=== PATIENT | male | born 1955 | race Caucasian/White ===

== ENCOUNTER 2016-12-19 10:19 | Emergency (ER) | payer OTHER ==
[~2016-12-19] VITALS: Ht 180.3 cm; Wt 83.9 kg
[~2016-12-19 10:19] MED LIST: GLUCOVANCE 5 MG1 TAB PO; LIPITOR40 M1 PO; LISINOPRIL40 MG PO; PERCOCET 325 MG1 TA2 PO; VERAMYST27.5 MCG/A NAS
--- NOTE | 2016-12-19 11:25 | ED SKIN/ALLERGY COMPLAINT ---
History of Present Illness General Chief Complaint: General Adult Stated Complaint: "I'M HAVING A SHINGLES ATTACK" Source: patient Exam Limitations: no limitations Vital Signs & Intake/Output Vital Signs & Intake/Output Vital Signs Date Time Temp Pulse Resp B/P B/P Pulse O2 O2 Flow FiO2 Mean Ox Delivery Rate 12/19 1238 98.0 69 15 124/74 100 Room Air 12/19 1047 98 Room Air 12/19 1021 98.4 89 18 168/89 98 Room Air Allergies Coded Allergies: NO KNOWN ALLERGIES (04/22/15) Reconcile Medications Atorvastatin Calcium (Lipitor) 20 MG TAB 1 TAB PO DAILY CHOLESTEROL (Reported ) Fluticasone Furoate (Veramyst) 27.5 MCG/Actuation SPR 1 SPRAY VIVEK DAILY CONGESTION (Reported) Glyburide/Metformin Hydrochl (Glucovance 5 MG-500 MG) 1 TAB TAB 1 TAB PO DAILY DIABETES (Reported) Lisinopril (Unknown Strength) TAB (Unknown Dose) PO DAILY BP (Reported) OXYCODONE HCL/ACETAMINOPHEN (Percocet 5-325 MG Tablet) 325 MG/5 MG TAB 1 TAB PO Q4-6 PRN PRN PAIN Valacyclovir HCl (Valtrex) 1,000 MG TABLET 1 TAB PO TID SHINGLES Triage Note: 61 YO MALE TO ER FOR ?SHINGLES. STATES LAST SHINGLES WAS 1.5 YEARS AGO. NOTED WITH SWELLING TO L EYE AND RENESS NOTED TO ENTIRE FACE. STATES FACE IS ITCHY, DENIES PAIN. Triage Nurses Notes Reviewed? yes Onset: Gradual Duration: day(s): Timing: recent history Severity: moderate Location: scalp, face HPI: 61-year-old male with history of diabetes, hypertension, herpes zoster presents emergency department complaining of shingles flareup since yesterday. Patient states that current flare is in same location as previous outbreak 1.5 years ago , right forehead. Patient states that this time both of his eyes seem to be involved with swelling noted to both eyelids beginning last night. Patient also feels as though both sides of his face are affected, last herpes zoster flare up only involved the right side of his face. The patient saw an meeting planner for his last episode of herpes zoster and was told that he had no infection of his eyes however he did have lesions on his eyelids. He states that yesterday he felt the rash coming on with tingling and burning sensation. He currently denies fevers, chills, abdominal pain, visual changes, blurry vision, eye pain, ear pain. (CHALO WINTERS PA-C) Past History Travel History Traveled to [place] past 21 day No Medical History Any Pertinent Medical History? 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 No (CHALO WINTERS PA-C) Review of Systems Review of Systems Constitutional: Reports: no symptoms. EENTM: Reports: see HPI. Respiratory: Reports: no symptoms. Cardiovascular: Reports: no symptoms. GI: Reports: no symptoms. Genitourinary: Reports: no symptoms. Musculoskeletal: Reports: no symptoms. Skin: Reports: see HPI. Neurological/Psychological: Reports: see HPI. Hematologic/Endocrine: Reports: no symptoms. Immunologic/Allergic: Reports: no symptoms. All Other Systems: Reviewed and Negative (CHALO WINTERS PA-C) Physical Exam Physical Exam General Appearance: well developed/nourished, no apparent distress, alert, awake Comments: Well-developed well-nourished person in no acute distress HEENT: ; PERRL, EOMI, no nystagmus. Swelling of upper and lower lids OU, visual accuity: OD - 20/25, OS - 20/30, Fluoroscene stain shows no uptake OU HEAD is atraumatic. moist mucous membranes, +preauricular LAD nontender bilaterally Neck: Supple, +nontender anterior cervical lymphadenopathy, normal range of motion without pain or tenderness Back: Full range of motion Cardiovascular: Regular rate and rhythms no murmurs rubs or gallops, normal JVP Respiratory:No respiratory distress. Patient speaking in full complete sentences. Breath sounds clear to auscultation bilaterally: NO W/R/R Extremity: No edema, full range of motion of extremities Neuro: Alert oriented x3, motor sensory normal, There were no obvious focal neurologic abnormalities. Skin: Crusting vesicular rash on right forehead/scalp, erythema of majority of face, orbital swelling without tenderness, swelling of bilateral cheeks with erythema without tednernes Psych: Mood and affect is normal, memory and judgment is normal. (SINGH HOLLINS,CHALO SNOW) Progress Differential Diagnosis: abscess/cellulitis, allergic reaction, angioedema, contact dermatitis, erythema multiforme, shingles, urticaria Plan of Care: Spoke with Dr. Bella - patient can follow up with Dr. Marrero this week. He recommends lubricating eye drops and treat zoster skin eruption. Spoke with Dr. Palencia regarding patient. We'll treat with Valtrex and patient will follow-up with Dr. Marrero tomorrow. Patient has not had any visual changes, visual acuity is within normal limits, no evidence of uptake on fluorescein staining. The patient is in no acute distress, vital signs are within normal limits. The patient is in agreement with the plan of care. The patient will return with any worsening symptoms or concerns. (CHALO WINTERS PA-C) Departure Departure Disposition: HOME OR SELF CARE Condition: Stable Clinical Impression Primary Impression: Herpes zoster Secondary Impressions: Orbital swelling Referrals: ALFONSO MENJIVAR DO (PCP/Family) Additional Instructions: Begin Valtrex, take as prescribed for full 7 days. Purchase over the counter artificial tears or lubricating eye drops, instill eye drops in both eyes at least four times a day. Follow-up with your eye doctor, Dr. Marrero tomorrow for repeat eye exam. Increase her fluids, get plenty of rest. Return with any worsening symptoms or concerns. Please note that there might be incidental findings in your evaluation that are unrelated to the current emergency department visit. Please notify your primary care doctor about this emergency department visit in order to obtain and review all of the testing performed so that these incidental findings can be monitored as needed. If you're unable to follow up as outlined in the discharge instructions please return to the emergency department. Thank you for choosing the [facility] for your care. It was a pleasure to serve you today. Departure Forms: Customer Survey General Discharge Information Prescriptions: Current Visit Scripts Valacyclovir HCl (Valtrex) 1 TAB PO TID #21 TAB (SINGH HOLLINS,CHALO SNOW) PA/ICU RN Co-Sign Statement Statement: ED Attending supervision documentation- [X] I saw and evaluated the patient. I have also reviewed all the pertinent lab results and diagnostic results. I agree with the findings and the plan of care as documented in the PA's/ICU RN's documentation. [X] I have reviewed the ED Record and agree with the PA's/ICU RN's documentation. [] Additions or exceptions (if any) to the PAs/ICU RN's note and plan are summarized below: [] (GERTRUDE CISNEROS,ANDREW)
[2016-12-19] MEDS ORDERED: VALTREX1000 MG PO (12:22)
[2016-12-19 12:38] VITALS: BP 124/74
[2016-12-20] MEDS ORDERED: POTASSIUM CITR10 ME1 PO (12:38)
[2016-12-20] MEDS ORDERED: GLYBURIDE5 M1 PO (12:38)
[2016-12-20] MEDS ORDERED: METFORMIN HCL1000 M1 PO (12:38)
[2016-12-20] MEDS ORDERED: LISINOPRIL20 M1 PO (12:39)
[2016-12-21] MEDS ORDERED: BENADRYL25 MG PO (14:52)
[2016-12-21] MEDS ORDERED: PREDNISONE20 M1 PO (14:52)
== END 2016-12-19 12:42 ==
LOC: ERH 10:19
DX: B02.9 Zoster without complications (principal); R22.0 Localized swelling, mass and lump, head

== ENCOUNTER 2017-10-01 20:18 | Emergency (ER) | payer OTHER ==
[~2017-10-01] VITALS: Ht 180.3 cm; Wt 81.6 kg
[~2017-10-01 20:18] MED LIST changes: +BENADRYL25 MG PO; +GLYBURIDE5 M1 PO; +LISINOPRIL20 M1 PO; +METFORMIN HCL1000 M1 PO; +POTASSIUM CITR10 ME1 PO; +PREDNISONE20 M1 PO; +VALTREX1000 MG PO
--- NOTE | 2017-10-01 21:46 | ED GI/GU/ABDOMINAL COMPLAINT ---
History of Present Illness General Chief Complaint: Abdominal Pain/Flank Pain Stated Complaint: FLANK PAIN Source: patient Exam Limitations: no limitations Vital Signs & Intake/Output Vital Signs & Intake/Output ED Intake and Output 10/03 0000 10/02 1200 Intake Total 1000 Output Total Balance 1000 Intake, IV 1000 Allergies Coded Allergies: NO KNOWN ALLERGIES (04/22/15) Reconcile Medications Atorvastatin Calcium (Lipitor) 40 MG TABLET 1 TAB PO DAILY CHOLESTEROL ( Reported) diphenhydrAMINE HCl (Benadryl) 25 MG CAPSULE 1 CAP PO BID PRN Allergic reaction Glyburide 5 MG TABLET 1 TAB PO BID DIABETES (Reported) Lisinopril 20 MG TABLET 1 TAB PO DAILY HEART (Reported) Metformin HCl 1,000 MG TABLET 1 TAB PO BID DIABETES (Reported) Potassium Citrate (Potassium Citrate ER) 10 MEQ (1,080 MG) TABLET.ER 1 TAB PO TID SUPPLEMENT (Reported) Prednisone 20 MG TABLET 2 TAB PO DAILY Allergic reaction Valacyclovir HCl (Valtrex) 1,000 MG TABLET 1 TAB PO TID shingles Triage Note: PT FROM HOME C/O OF SHINGLES? PER PT. PT STATES HE WAS SEEN HERE EARLIER TODAY FOR POSSIBLE SHINGLES ON THE RIGHT SIDE OF PTS FACE. PT STATES THAT HE WENT HOME MEDICATED HIMSELF WITH THE CYCLOVIR AND THEN HOURS AFTER BEGAN TO HAVE BILATERAL KIDNEY PAIN. PT HAS HX OF KIDNEY STONES. PT STATES HE HAS HAD KIDNEY STONES IN YEARS. PT STATES NAUSEA AND VOMITING X1. PT DENIES UTI S/S. VSS. AFEBRILE IN TRIAGE. Triage Nurses Notes Reviewed? yes Onset: Abrupt Duration: day(s): (1), better, changing over time, continues in ED Timing: remote history Quality/Severity: cramping Severity Numbers: 6 Location: left flank, right flank Radiation: no radiation Activities at Onset: none Prior Abdominal Problems: similar symptoms Past Sexual History: Unobtainable at this time No Modifying Factors: none Modifying Factors: Worsens With: movement, palpation. HPI: 62-year-old male past medical history of hypertension, hyperlipidemia, diabetes, nephrolithiasis presented for evaluation of bilateral flank pain. Patient states that symptoms started abruptly a few hours ago and have improved since first starting. The pain is located in the bilateral flanks does not radiate. Patient was seen here earlier for possible shingles to his left periorbital area. He was started on acyclovir. He states that symptoms started approximately one hour after taking his first dose of acyclovir. Patient has taken acyclovir in the past without any side effects/complications. Patient does report a remote history of kidney stones feels like this is similar. Denies any urinary symptoms, chest pain, shortness of breath, fever, hematuria. No difficulty urinating. He states that he took Ativan for the pain with good improvement. The pain is improved since first starting. He reports mild associated nausea and one episode of vomiting no diarrhea. No coughing. (Maximiliano Benito) Past History Travel History Traveled to [place] past 21 day No Medical History Any Pertinent Medical History? 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 No (Maximiliano Benito) Review of Systems Review of Systems Constitutional: Reports: no symptoms. EENTM: Reports: no symptoms. Respiratory: Reports: no symptoms. Cardiovascular: Reports: no symptoms. GI: Reports: see HPI, abdominal pain, nausea, vomiting. Genitourinary: Reports: no symptoms. Musculoskeletal: Reports: no symptoms. Skin: Reports: no symptoms. Neurological/Psychological: Reports: no symptoms. Hematologic/Endocrine: Reports: no symptoms. Immunologic/Allergic: Reports: no symptoms. All Other Systems: Reviewed and Negative (Maximiliano Benito) Physical Exam Physical Exam General Appearance: well developed/nourished, no apparent distress, alert, awake Head: atraumatic, normal appearance Eyes: Bilateral: normal appearance, PERRL, EOMI. Ears, Nose, Throat, Mouth: hearing grossly normal, moist mucous membrane Neck: normal inspection, supple, full range of motion Respiratory: normal breath sounds, chest non-tender, no respiratory distress, lungs clear Cardiovascular: regular rate/rhythm, normal peripheral pulses Peripheral Pulses: 2+ radial (R), 2+ radial (L) Gastrointestinal: normal bowel sounds, soft, no organomegaly, tenderness ( BILATERAL FLANKS) Back: normal inspection, normal range of motion, no vertebral tenderness, no CVA tenderness Extremities: normal range of motion Neurologic/Psych: no motor/sensory deficits, awake, alert, oriented x 3, normal gait, normal mood/affect Skin: intact, normal color, warm/dry Core Measures ACS in differential dx? No Sepsis Present: No Sepsis Focused Exam Completed? No (Arthur REICH,Maximiliano) Progress Differential Diagnosis: appendicitis, biliary colic, bowel obstruction, cholecystitis, diverticulitis, gastritis, inflamm bowel dis, pancreatitis, peptic ulcer, PUD/GERD, perforated viscous, pyelonephritis, SBO, ureterolithiasis, urinary retention, urethritis, UTI/pyelo Plan of Care: Orders Procedure Date/time Status URINALYSIS 10/01 2028 Complete LIPASE 10/01 2028 Complete COMPREHENSIVE METABOLIC PANEL 10/01 2028 Complete CBC WITHOUT DIFFERENTIAL 10/01 2028 Complete Current Medications Sig/Lisandro Start time Last Medication Dose Stop Time Status Admin Sodium Chloride 1,000 ML BOLUS ONE 10/01 2345 CANr (Normal Saline 0.9%) 10/02 0044 Laboratory Tests 10/01/17 2200: Urinalysis MOD H, Urine Color YEL, Urine Clarity HAZY H, Urine pH 6.0, Ur Specific [place] 1.025, Urine Protein >=300 H, Urine Ketones TRACE H, Urine Nitrite NEG, Urine Bilirubin NEG, Urine Urobilinogen 0.2, Ur Leukocyte Esterase TRACE H, Ur Microscopic SEDIMENT EXAMINED, Urine RBC 1-3, Urine WBC 5-10 H, Ur Epithelial Cells FEW, Urine Bacteria RARE H, Urine Hemoglobin TRACE-INTACT H, Urine Glucose 100 H 10/01/177: Anion Gap 14, Estimated GFR 48 L, BUN/Creatinine Ratio 10.0, Glucose 186 H, Calcium 10.1, Total Bilirubin 1.2, AST 20, ALT 23, Alkaline Phosphatase 46, Total Protein 7.1, Albumin 4.5, Globulin 2.6, Albumin/Globulin Ratio 1.7, Lipase 178, CBC w Diff NO MAN DIFF REQ, RBC 4.51 L, MCV 92.8, MCH 32.3 H, MCHC 34.8, RDW 12.7, MPV 6.6 L, Gran % 75.6 H, Lymphocytes % 12.7 L, Monocytes % 9.7 H, Eosinophils % 1.6, Basophils % 0.4, Absolute Granulocytes 7.5 H, Absolute Lymphocytes 1.3, Absolute Monocytes 1.0 H, Absolute Eosinophils 0.2, Absolute Basophils 0 Patient seen and evaluated. He is here with bilateral flank pain. He states that pain feels similar to kidney stones but has not had them in years. He reports associated nausea one episode of vomiting. He was seen here earlier for possible shingles and started on acyclovir. The pain started around hours after taking the acyclovir. He is never had similar problems in the past with acyclovir. Basic blood work urinalysis CT scan of the abdomen and pelvis obtained. Patient medicated with IV Tylenol. Blood work shows a mild acute kidney injury with a creatinine of 1.5 and GFR 48. Patient normally has a normal creatinine. Potassium was 5.2. Patient was given a liter of normal saline. Advised him to increase fluids at home. He is feeling much better after being medicated. He is able tolerate fluids here. CT scan shows a nonobstructive 2 mm right renal stone. No hydronephrosis no signs of pyelonephritis. Advised patient to continue to increase fluids. Continue Tylenol as needed for pain. Also Ativan can be used as needed. Kayexalate. Continue acyclovir as it does not seem likely it is the cause. Discussed return precautions in detail. Follow-up urology and primary care doctor. Advised patient he needs a recheck of his creatinine and potassium the next 2 days. Patient agrees the plan case discussed with Dr. WERNER and he agrees. Diagnostic Imaging: Viewed by Me: CT Scan. Discussed w/RAD: CT Scan. Radiology Impression: PATIENT: CHELSY WHALEN PRESENT AGE: 62 PATIENT ACCOUNT NO: [id number] : 57 LOCATION: [facility] ORDERING PHYSICIAN: Maximiliano REICH SERVICE DATE: 10/01/17 EXAM TYPE: CAT - CT ABD & PELVIS W/O IV CONTRAS EXAMINATION: CT ABDOMEN AND PELVIS WITHOUT CONTRAST CLINICAL INFORMATION: Bilateral flank pain. COMPARISON: None. TECHNIQUE : Contiguous axial thin section helical images of the abdomen and pelvis were performed without oral or IV contrast. The data set was reformatted in the coronal and sagittal planes and reviewed on an independent workstation. DLP: 438 mGy-cm. FINDINGS: The visualized lung bases are clear. The visualized portions of the heart are unremarkable. The liver is of normal size and attenuation without focal lesions nor intrahepatic biliary ductal dilation. A normal gallbladder is identified. There is no wall thickening or discernible pericholecystic fluid. The spleen, pancreas and left adrenal gland are unremarkable. There is mild fullness to the lateral limb to the right adrenal gland that is a fat attenuation. Both kidneys are of normal size and attenuation without hydronephrosis. Within the lower pole of the right kidney, there is a 2 mm nonobstructive calculus. There is mild bilateral perinephric stranding. There is no abdominal free fluid. There is neither mesenteric nor retroperitoneal lymphadenopathy. There are scattered vascular calcifications within the pelvis. Normal unopacified loops of small and large bowel are identified. There is no pelvic free fluid. The urinary bladder is unremarkable. There is neither pelvic nor inguinal lymphadenopathy. There are fat-containing bilateral inguinal hernias. Bone windows: Neither sclerotic nor lytic bone lesions are identified. IMPRESSION: 2 mm nonobstructive right renal calculus. No hydronephrosis. No demonstrable ureteral calculi. No evidence for acute abdominal or pelvic inflammatory or listhesis. DICTATED BY: Calvin Novoa MD DATE/TIME DICTATED:05/09 LADLE LINER HELPER:ABRAN DATE/TIME TRANSCRIBED:10/01/172335 CONFIDENTIAL, DO NOT COPY WITHOUT APPROPRIATE AUTHORIZATION. <Electronically signed in Other Vendor System> SIGNED BY: Calvin Novoa MD 10/01/17 Initial ED EKG: none (Maximiliano Benito) Departure Departure Disposition: HOME OR SELF CARE Condition: Stable Clinical Impression Primary Impression: Renal colic Referrals: Tomasa Gross DO (PCP/Family) Additional Instructions: Rest and drink plenty of fluids. Tylenol 1000 mg every 6 hours as needed for pain. YOU can also use Ativan as needed. You need to follow-up with her primary care doctor on Tuesday for a recheck of your labs. Monitor symptoms closely if you have worsening pain or any other concerns return immediately. Departure Forms: Customer Survey General Discharge Information (Maximiliano Benito) PA/LOBSTERMAN Co-Sign Statement Statement: ED Attending supervision documentation- x I saw and evaluated the patient. I have also reviewed all the pertinent lab results and diagnostic results. I agree with the findings and the plan of care as documented in the PA's/LOBSTERMAN's documentation. [] I have reviewed the ED Record and agree with the PA's/LOBSTERMAN's documentation. [] Additions or exceptions (if any) to the PAs/LOBSTERMAN's note and plan are summarized below: [] (Candy CISNEROS,Patrick)
[2017-10-01 22:05] LABS: ABSOLUTE BASOPHIL COUNT 0 /CUMM (0.0-0.2); ABSOLUTE EOSINOPHIL COUNT 0.2 /CUMM (0.0-0.7); ABSOLUTE GRANULOCYTE CT 7.5 /CUMM (1.4-6.5); ABSOLUTE LYMPH COUNT 1.3 /CUMM (1.2-3.4); BASOPHIL % 0.4 % (0.0-2.0); EOSINOPHIL % 1.6 % (0-5); GRANULOCYTE % 75.6 % (42.2-75.2); HEMATOCRIT 41.8 % (42-52); MEAN CORPUSCULAR HGB 32.3 PG (27.0-31.0); MEAN CORPUSCULAR HGB CONC 34.8 G/DL (33.0-37.0); MEAN CORPUSCULAR VOLUME 92.8 FL (80.0-94.0); MEAN PLATELET VOLUME 6.6 FL (7.4-10.4); PLATELET COUNT 290 /CUMM (130-400); RBC DISTRIBUTION WIDTH 12.7 % (11.5-14.5); RED BLOOD CELL CT 4.51 /CUMM (4.70-6.10)
--- NOTE | 2017-10-01 23:44 | CT SCAN REPORT ---
EXAMINATION: CT ABDOMEN AND PELVIS WITHOUT CONTRAST CLINICAL INFORMATION: Bilateral flank pain. COMPARISON: None. TECHNIQUE: Contiguous axial thin section helical images of the abdomen and pelvis were performed without oral or IV contrast. The data set was reformatted in the coronal and sagittal planes and reviewed on an independent workstation. DLP: 438 mGy-cm. FINDINGS: The visualized lung bases are clear. The visualized portions of the heart are unremarkable. The liver is of normal size and attenuation without focal lesions nor intrahepatic biliary ductal dilation. A normal gallbladder is identified. There is no wall thickening or discernible pericholecystic fluid. The spleen, pancreas and left adrenal gland are unremarkable. There is mild fullness to the lateral limb to the right adrenal gland that is a fat attenuation. Both kidneys are of normal size and attenuation without hydronephrosis. Within the lower pole of the right kidney, there is a 2 mm nonobstructive calculus. There is mild bilateral perinephric stranding. There is no abdominal free fluid. There is neither mesenteric nor retroperitoneal lymphadenopathy. There are scattered vascular calcifications within the pelvis. Normal unopacified loops of small and large bowel are identified. There is no pelvic free fluid. The urinary bladder is unremarkable. There is neither pelvic nor inguinal lymphadenopathy. There are fat-containing bilateral inguinal hernias. Bone windows: Neither sclerotic nor lytic bone lesions are identified. IMPRESSION: 2 mm nonobstructive right renal calculus. No hydronephrosis. No demonstrable ureteral calculi. No evidence for acute abdominal or pelvic inflammatory or listhesis.
[2017-10-02 00:01] VITALS: BP 118/60
== END 2017-10-02 00:06 ==
LOC: ERH 20:18
PROVIDERS: Physician Assistant Medical
DX: N23 Unspecified renal colic (principal)
CPT/HCPCS: 74176; 81001; 96360